=== PATIENT | male | born 1995 | race African-American/Black ===

== ENCOUNTER 2017-01-17 18:31 | Emergency (ER) | payer OTHER ==
[~2017-01-17] VITALS: Ht 188 cm; Wt 85.5 kg
[2017-01-17 18:36] VITALS: Ht 188 cm; Wt 85.5 kg
[2017-01-17] MEDS ORDERED: IBUP-1542 PO (19:20)
[2017-01-17] MEDS ORDERED: HYDR-906 PO (19:20)
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
[2017-01-17 20:15] VITALS: BP 131/70; PULSE 67; RESP 17; TEMP 98.7
== END 2017-01-17 20:16 | disposition home or self-care (01) ==
LOC: FTE 18:31
DX: R10.33 Periumbilical pain (principal); Z04.1 Encounter for examination and observation following transport accident
CPT/HCPCS: 76705

== ENCOUNTER 2018-06-29 11:24 | Emergency (ER) | END 2018-06-29 14:01 | disposition home or self-care (01) ==

== ENCOUNTER 2019-06-24 13:16 | Emergency (ER) | payer MEDICAID, OTHER ==
[~2019-06-24] VITALS: Ht 182.9 cm; Wt 89.0 kg
[~2019-06-24 13:16] MED LIST: ACET500C5 PO; CEPH-443 PO; CYCL10TA7 PO; HYDR-3980 PO; HYDR-4011 PO; IBUP-1542 PO; IBUP-1561 PO; NALO4SPR NS; NAPR-985 PO; SULF1TAB31 PO
[2019-06-24 13:18] VITALS: BP 136/86; PULSE 80; RESP 18; Ht 182.9 cm; Wt 89.0 kg
== END 2019-06-24 14:10 | disposition home or self-care (01) ==
LOC: FTE 13:16
DX: L02.01 Cutaneous abscess of face (principal)
CPT/HCPCS: 99283

== ENCOUNTER 2019-06-28 14:19 | Emergency (ER) | payer MEDICAID, OTHER ==
[~2019-06-28] VITALS: Ht 182.9 cm; Wt 89.0 kg
[2019-06-28 14:22] VITALS: BP 147/80; PULSE 82; RESP 18; Ht 182.9 cm; Wt 89.0 kg
[2019-06-28] MEDS ORDERED: LIDOCAINE 1% (MDV) 20 ML INJ SC ONE (15:30)
== END 2019-06-28 17:07 | disposition home or self-care (01) ==
LOC: FTE 14:19
DX: L02.01 Cutaneous abscess of face (principal)
CPT/HCPCS: 10060; Z7502; Z7610

== ENCOUNTER 2019-06-30 10:10 | Emergency (ER) | payer MEDICAID, OTHER ==
[~2019-06-30] VITALS: Ht 170.2 cm; Wt 85.4 kg
[2019-06-30 10:33] VITALS: BP 125/71; PULSE 58; RESP 18; Ht 170.2 cm; Wt 85.4 kg
== END 2019-06-30 12:36 | disposition home or self-care (01) ==
LOC: E/R 10:10
DX: Z48.01 Encounter for change or removal of surgical wound dressing (principal)
CPT/HCPCS: 99281